=== PATIENT | female | born 1985 | race Caucasian/White ===

== ENCOUNTER 2018-08-14 22:09 | Outpatient (CLI) | payer SELFPAY ==
[2018-08-14 23:15] VITALS: BMI 38.6
[2018-08-14] MEDS: Lactated Ringers 1,000 ML 999 ML IV (23:19)
[2018-08-15 00:01] LABS: ROM Internal Control Test YES-OK TO RESULT pt. (Internal QC); ROM Patient Test Negative (Negative)
[2018-08-15 00:54] LABS: Group B Strep DNA By PCR Negative (Negative); Internal Control PASS; Probe Check PASS; Specimen Processing Control PASS
--- NOTE | 2018-08-15 07:30 | OB.TRI.NOTE ---
- Problem List (1) uterine contractions in third trimester, antepartum Status: Acute History of Present Illness Date of Service: 08/14/18 Was patient seen by the physician?: Yes Reason For Visit: R/O LABOR Date of Service: 08/14/18 Final YANIRA: 09/16/18 Final YANIRA Source: US <20 weeks Gestational age: 35 Weeks and 3 Days History of Present Illness: Patient is a @ 35+ weeks and has been receiving her care of the [facility]. Patient reports this evening she is having more regular contractions that are painful and downward pelvic pressure. Patient course noted to have frequent uterine contractions which she takes oral Terbutaline every 2 hours as well as PMH of ventricle shunt placement done and irregular heartbeat that she takes Cardiac Essence supplement to correct. Patient denies VB, LOF or DFM. Patient was walk-in patient at this hospital as she is <38 weeks gestation. Allergies No Known Allergies Allergy (Verified 08/14/18 23:17) Laboratory Studies: Laboratory Tests 08/14/18 08/14/18 Range/Units 23:30 23:30 Vag Amniotic Fld Detect Negative (Negative) Group B Strep DNA Negative (Negative) Specimen Comment Not Reportable Review of Systems Constitutional: Denies: Chills, Fever, Weight Change HEENT: Denies: Head Aches, Sinus Congestion, Sinus Drainage Cardiovascular: Denies: Chest Pain, Palpitations Respiratory: Denies: Cough, Shortness of breath at rest, Sputum production Gastrointestinal: Denies: Abdominal Pain, Nausea, Vomiting Genitourinary: Denies: Dysuria Musculoskeletal: Denies: Joint Pain, Joint Tenderness Skin: Denies: Rash, Wounds Neurological: Denies: Numbness, Tingling, Focal weakness Psychiatric: Denies: Anxiety, Depression, Homicidal Ideations, Suicidal Ideations Hematologic/ Lymphatic: Denies: Easy Bruising, Easy Bleeding Comment: See [facility] records for patient med, surg and psych/social history Physical Exam Vitals: VSS, Afebrile. See nurse's note for detailed vital signs General: Alert, Oriented x3, No apparent distress HEENT: Atraumatic, Normocephalic. Negative for: Thyromegaly, Lymphadenopathy Cardiovascular: Regular rate, Regular Rhythm Lungs: Normal air movement Abdomen: Non Tender, Non-Distended, Gravid Extremities:: No edema Neurological: Deep Tendon Reflexes 2+/4 and Symmetrical, Neuro grossly intact LITERARY AGENT: Normal external genitalia. Negative for: Vulvar lesions Estimated gestational size: Appropriate for gestational size Presentation: Cephalic - Confirmed by bedside u/s Cervix Dilation (cm): 2 - Cervix firm, posterior Station: -3 Effacement (%): 50 NST - FHR Rate Baby A Variability:: Moderate Accelerations:: 15 x 15 Decelerations:: None NST Reactive:: Yes, Appropriate for gestational age FHR Category:: Category I Uterine Activity:: Ctx q 2-4 minutes, mild to moderately palpable Impression/Plan 33 y/o @ 35+ weeks, False Labor, Contractions, Category I FHT P: 1) No cervical change noted within 3 hours, contractions have spaced out from admission 2) Discharge patient to home in stable condition 3) PTL precautions and [facility] teaching reviewed Criselda BECERRA
--- NOTE | 2018-08-15 07:37 | OB.TRI.HP_ITS ---
- Problem List (1) uterine contractions in third trimester, antepartum Status: Acute History of Present Illness Date of Service: 08/14/18 Was patient seen by the physician?: Yes Reason For Visit: R/O LABOR Date of Service: 08/14/18 Final YANIRA: 09/16/18 Final YANIRA Source: US <20 weeks Gestational age: 35 Weeks and 3 Days History of Present Illness: Patient is a @ 35+ weeks and has been receiving her care of the [facility]. Patient reports this evening she is having more regular contractions that are painful and downward pelvic pressure. Patient course noted to have frequent uterine contractions which she takes oral Terbutaline every 2 hours as well as PMH of ventricle shunt placement done and irregular heartbeat that she takes Cardiac Essence supplement to correct. Patient denies VB, LOF or DFM. Patient was walk-in patient at this hospital as she is <38 weeks gestation. Allergies No Known Allergies Allergy (Verified 08/14/18 23:17) Laboratory Studies: Laboratory Tests 08/14/18 08/14/18 Range/Units 23:30 23:30 Vag Amniotic Fld Detect Negative (Negative) Group B Strep DNA Negative (Negative) Specimen Comment Not Reportable Review of Systems Constitutional: Denies: Chills, Fever, Weight Change HEENT: Denies: Head Aches, Sinus Congestion, Sinus Drainage Cardiovascular: Denies: Chest Pain, Palpitations Respiratory: Denies: Cough, Shortness of breath at rest, Sputum production Gastrointestinal: Denies: Abdominal Pain, Nausea, Vomiting Genitourinary: Denies: Dysuria Musculoskeletal: Denies: Joint Pain, Joint Tenderness Skin: Denies: Rash, Wounds Neurological: Denies: Numbness, Tingling, Focal weakness Psychiatric: Denies: Anxiety, Depression, Homicidal Ideations, Suicidal Id eations Hematologic/ Lymphatic: Denies: Easy Bruising, Easy Bleeding Comment: See [facility] records for patient med, surg and psych/social history Physical Exam Vitals: VSS, Afebrile. See nurse's note for detailed vital signs General: Alert, Oriented x3, No apparent distress HEENT: Atraumatic, Normocephalic. Negative for: Thyromegaly, Lymphadenopathy Cardiovascular: Regular rate, Regular Rhythm Lungs: Normal air movement Abdomen: Non Tender, Non-Distended, Gravid Extremities:: No edema Neurological: Deep Tendon Reflexes 2+/4 and Symmetrical, Neuro grossly intact COURT OPERATIONS CLERK: Normal external genitalia. Negative for: Vulvar lesions Estimated gestational size: Appropriate for gestational size Presentation: Cephalic - Confirmed by bedside u/s Cervix Dilation (cm): 2 - Cervix firm, posterior Station: -3 Effacement (%): 50 NST - FHR Rate Baby A Variability:: Moderate Accelerations:: 15 x 15 Decelerations:: None NST Reactive:: Yes, Appropriate for gestational age FHR Category:: Category I Uterine Activity:: Ctx q 2-4 minutes, mild to moderately palpable Impression/Plan 33 y/o @ 35+ weeks, False Labor, Contractions, Category I FHT P: 1) No cervical change noted within 3 hours, contractions have spaced out from admission 2) Discharge patient to home in stable condition 3) PTL precautions and [facility] teaching reviewed Criselda Villavicencio APRN-CED
== END 2018-08-15 02:00 | disposition home or self-care (01) ==
LOC: WPOUT 22:40 → WP 22:40
PROVIDERS: Visit Provider Obstetrics & Gynecology
DX: O60.03 Preterm labor without delivery, third trimester (principal); Z3A.33 33 weeks gestation of pregnancy
CPT/HCPCS: 96360; 96361; 59025; 59050; 84112; 87081; 87653; 99218; J7120; G0378

== ENCOUNTER 2021-07-02 20:42 | Outpatient (CLI) | payer SELFPAY ==
[2021-07-02] VITALS (13 sets, daily range): BP systolic 118; BP diastolic 60; PULSE 79–100; TEMP 36.7; O2SAT 96–99; BMI 39.6
[2021-07-02 21:26] LABS: Bedside Glucose 85 mg/dL (70-110)
--- NOTE | 2021-07-03 09:27 | OB.TRI.NOTE ---
HPI - General HPI Narrative TIMMY BRADSHAW, 36-year-old 12 para 6 who presents at 29-5/7 weeks for complaint shortness of breath and abdominal pressure. She denies any vaginal bleeding or leaking of fluid. She states she gets short of breath at night for the last several nights. She came in to be evaluated. Maternal Data Information Final YANIRA: 09/12/21 Gestational age: 29 5/7 PFSH PFSH Home Medications NK 07/02/21 [History Last Taken Unknown] Allergy/AdvReac Type Severity Reaction Status Date / Time No Known Allergies Allergy Verified 07/02/21 22:36 Social History Smoking Status: Never smoker NST FHR Rate Baby A Baseline: 140 Variability:: Moderate Accelerations:: 10 x 10 Decelerations:: Variable (one) NST Reactive:: Appropriate for gestational age FHR Category:: Category I (before discharge category 1) Uterine Activity:: irritability Assessment & Plan (1) Supervision of other high risk pregnancies, third trimester: PLAN: Patient presented complaining of shortness of breath over the last several nights. No obstetrical issues. Was having some complaint of abdominal pressure and has a history of a second trimester delivery. Cervix was checked by nursing and was closed. Patient was then discharged to go to the emergency room to have her shortness of breath evaluated. Follow-up with her routine provider or return as needed. (2) 29 weeks gestation of : (3) uterine contractions in third trimester, antepartum:
== END 2021-07-02 22:30 | disposition home or self-care (01) ==
LOC: WPOUT 20:48 → WP 20:51
PROVIDERS: Referring Provider Obstetrics & Gynecology; Visit Provider Obstetrics & Gynecology
DX: O26.893 Other specified pregnancy related conditions, third trimester (principal); O09.893 Supervision of other high risk pregnancies, third trimester; R06.02 Shortness of breath; R10.9 Unspecified abdominal pain; Z3A.29 29 weeks gestation of pregnancy
CPT/HCPCS: 59025; 59050; 82962; 94760; 99218; G0378

== ENCOUNTER 2021-07-02 22:34 | Emergency (ER) | payer OTHER, SELFPAY ==
[2021-07-02 22:36] VITALS: BP 125/55; PULSE 82; RESP 14; TEMP 36.6; O2SAT 99; BMI 39.3
--- NOTE | 2021-07-02 23:46 | ED.VIS.DYS ---
HPI History of Present Illness Chief Complaint: Shortness of Breath Narrative Narrative: 36-year-old female presenting with shortness of breath. She states that she was at at [facility] prior to coming to the ED. She states she had heart tones checked there because she was concerned about her . She is currently 30 weeks . She states she is not had any complications such as loss of fluid or vaginal bleeding. She does not have abdominal pain. She states she has had a little bit of diarrhea. Patient states that she has had some shortness of breath for the last couple of days which has been making it hard for her to sleep. She does not have chest pain, fever, chills, body aches. She admits to mild nausea but is able to eat and drink. She states that her other kids at home have all been sick with a cough. PFSH [facility] Home Medications NK 07/02/21 [History Last Taken Unknown] Allergy/AdvReac Type Severity Reaction Status Date / Time No Known Allergies Allergy Verified 07/02/21 22:36 Social History Smoking Status: Never smoker ROS ROS ED Constitutional Constitutional ED: Denies chills, fever(s) or weight loss Eyes Eyes: Denies blurry vision or diplopia ENT ENT ED: Denies rhinorrhea or sore throat Cardiovascular Cardiovascular: Denies chest pain, palpitations or racing heartbeat Respiratory/Chest Respiratory/Chest: Reports dyspnea; Denies cough or sputum Gastrointestinal Gastrointestinal: Reports diarrhea and nausea; Denies abdominal pain, constipation or vomiting Genitourinary Genitourinary ED: Denies dysuria, hematuria or urinary frequency Musculoskeletal Musculoskeletal: Denies arthralgias or myalgias Integumentary Denies abscess or rash Neurologic Neurologic: Denies headache(s) or paresthesias EXAM Physical Exam Const Vital Signs: 07/02/21 22:36 Temperature 97.9 F Temperature Source Temporal Pulse Rate 82 Respiratory Rate 14 Blood Pressure 125/55 H Blood Pressure Mean 78 Pulse Ox 99 Oxygen Delivery Method Room Air Positive well nourished General Appearance ED: NAD; Negative for pallor HEENT Reports moist mucous membranes atraumatic Eyes PERRL and EOMs intact bilaterally General Eye ED: Negative for scleral icterus Neck no lymphadenopathy and supple Resp normal respiratory effort and clear to auscultation bilaterally Cardio regular rate and regular rhythm GI non-tender and non-distended GI Narrative: Gravid Palpation: soft Extremity normal to inspection General Extremety ED: Negative for edema or tenderness General Extremity: Negative for edema Neuro oriented x3, CN's II-XII intact bilaterally and no sensory deficits noted Sensorium / Orientation: alert and oriented to person Motor Exam: strength 5/5 throughout Psych mental status grossly normal Skin General Skin Exam: Negative for jaundice or pallor Lesions: no lesions Rashes: no rashes MDM MDM MDM Narrative Medical decision making narrative: Patient presenting with shortness of breath for 3 days which has been making it difficult for her to sleep. She states that while she was at OB they told her to come to the ER out of concern she may have a blood clot in her lung. Patient believes she had Covid in August but was never tested. She never developed blood clots during this timeframe. She has been four times previously and never developed a blood clot then. She has no calf pain or swelling. She denies chest pain. Currently her heart rate is eighty-two, respiratory rate fourteen, O2 sats 99% on room air. I counseled her that a blood clot would be unlikely. It is more likely that she would have something viral with her diarrhea. Her lungs are clear to auscultation. After a long discussion with she and her they do not want to have a CT of the chest given that she is and low likelihood of having a blood clot based on her vitals and her history. I did test her for COVID-19 as she is unsure if she had this previously. I do not believe she needs any blood work or imaging based on her presentation. Covid testing was negative here in the ED. When I went to report the results to the patient she had eloped. Impression: 1. Dyspnea 2. Viral syndrome Discharge Plan Triage Chief Complaint: Shortness of Breath Other Complaint: Asthma ED Provider: Figueroa Rodriguez Dx/Rx/DC Orders Prescriptions: No Action NK RF: 0 Primary Care Provider: Orlando Bynum Referrals: Orlando Bynum DO [Primary Care Provider] - Disposition Disposition: Elopement
[2021-07-03] MEDS: Ondansetron ODT 4 MG Tablet PO (00:38)
[2021-07-03 01:10] VITALS: RESP 16
== END 2021-07-03 01:11 | disposition left against medical advice (07) ==
PROVIDERS: Emergency Provider Student in an Organized Health Care Education/Training Program; PCP Family Medicine
DX: O98.513 Other viral diseases complicating pregnancy, third trimester (principal); B34.9 Viral infection, unspecified; R06.00 Dyspnea, unspecified; R19.7 Diarrhea, unspecified; R11.0 Nausea; Z3A.30 30 weeks gestation of pregnancy
CPT/HCPCS: 87426; 99282